=== PATIENT | male | born 1995 | race Two or more races ===

== ENCOUNTER 2019-09-23 10:56 | Emergency (ER) | payer SELFPAY ==
[~2019-09-23] VITALS: Ht 180.3 cm; Wt 96.8 kg
[2019-09-23 11:06] VITALS: BP 139/64
== END 2019-09-23 12:55 | disposition home or self-care (01) ==
LOC: EMS 10:58
DX: J06.9 Acute upper respiratory infection, unspecified (principal); J45.909 Unspecified asthma, uncomplicated; Z20.828 Contact with and (suspected) exposure to other viral communicable diseases
CPT/HCPCS: 87635

== ENCOUNTER 2019-10-01 09:43 | Emergency (ER) | payer SELFPAY ==
[~2019-10-01] VITALS: Ht 180.3 cm; Wt 84.1 kg
[2019-10-01 09:56] VITALS: BP 120/78
== END 2019-10-01 10:40 | disposition home or self-care (01) ==
LOC: EMS 09:44
DX: Z20.828 Contact with and (suspected) exposure to other viral communicable diseases (principal); J45.909 Unspecified asthma, uncomplicated; F17.210 Nicotine dependence, cigarettes, uncomplicated